=== PATIENT | male | born 1970 ===

== ENCOUNTER 2020-05-10 07:49 | Outpatient (CLI) | payer BC, SELFPAY ==
[2020-05-12 18:29] LABS: SARS-CoV-2 RNA Undetected (Undetected); SARS-CoV-2 Specimen Source Nasopharynx
== END 2020-05-10 08:09 ==
PROVIDERS: Visit Provider Family Medicine
DX: Z11.59 Encounter for screening for other viral diseases (principal)
CPT/HCPCS: U0003